=== PATIENT | female | born 1950 | race Caucasian/White ===

== ENCOUNTER → 2016-06-07 | Outpatient (CLI) | payer OTHER, BC | LOC: FIMAGING 13:19 | DX: Z12.31 Encounter for screening mammogram for malignant neoplasm of breast (principal) | CPT/HCPCS: G0202 ==

== ENCOUNTER → 2017-05-22 | Outpatient (CLI) | payer OTHER, BC | LOC: BMCIMAGING 15:39 | PROVIDERS: ATTEND Internal Medicine | DX: R05 Cough (principal); R50.9 Fever, unspecified ==

== ENCOUNTER → 2018-03-27 | Outpatient (CLI) | payer OTHER, BC | LOC: FIMAGING 10:13 | PROVIDERS: ATTEND Internal Medicine | DX: S22.41XA Multiple fractures of ribs, right side, initial encounter for closed fracture (principal); R10.11 Right upper quadrant pain; N28.1 Cyst of kidney, acquired ==

== ENCOUNTER → 2018-05-29 | Outpatient (CLI) | payer OTHER, BC | LOC: BMCIMAGING 13:21 | PROVIDERS: ATTEND Physician Assistant | DX: Z47.1 Aftercare following joint replacement surgery (principal); Z96.641 Presence of right artificial hip joint; M25.752 Osteophyte, left hip ==